=== PATIENT | female | born 1995 | race Caucasian/White ===

== ENCOUNTER 2020-04-11 15:35 | Inpatient (IN) ==
[~2020-04-11 15:35] MED LIST: PENICILLIN G POTASSIUM 6 MU in DEXTROSE 5% 250 ML IV STA
[2020-04-11] MEDS ORDERED: OXYTOCIN 30 UNITS/500 ML BAG IV PRN ×2 (17:30→22:29)
[2020-04-11] MEDS ORDERED: PENICILLIN G POTASSIUM 3 MU in DEXTROSE 5% 100 ML IV PRN (17:30)
[2020-04-11 17:54] LABS: Hematocrit (blood only) 37.1 % (37-47); Hemoglobin 13.2 g/dL (12.0-16.0); Mean Corpuscular Hemoglobin 32.6 pg (25-34); Mean Corpuscular Volume 91.6 fL (80-100); Mean Platelet Volume 10.4 fL (7.4-10.4); Platelet Count 153 K/uL (130-400); RDW Coefficient of Variation 12.7 % (11.5-14.5); RDW Standard Deviation 42.8 fL (36.4-46.3); Red Blood Count 4.05 M/uL (4.2-5.4); White Blood Count 8.41 K/uL (4.8-10.8)
[2020-04-11] MEDS: LACTATED RINGER'S 1,000 ML IV PRN ×2 (18:01→20:08)
[2020-04-11 18:02] LABS: Mean Corpuscular Hgb Conc 35.6 g/dL (32-36)
[2020-04-11] MEDS ORDERED: BUPIVACAINE 0.25% 30 ML VIAL ONE (18:25)
[2020-04-11] MEDS ORDERED: ePHEDrine sulfate 50 MG/ML AMP ONE (18:25)
[2020-04-11] MEDS ORDERED: fentaNYL citrate 100 MCG/2 ML VIAL ONE (18:25)
[2020-04-11] MEDS ORDERED: fentaNYL 2MCG/ML ROPIV 1.25MG/ML 100 ML BAG EPI ONE (18:25)
--- NOTE | 2020-04-11 19:25 | Anesthesiology Consultation ---
Date of Service April 11, 2020 Assessment & Plan Chart Review Chart Review: Acceptable Risk for Labor Epidural Consults Requested none History Height/Weight Height: 5 ft 6.54 in Weight: 63 kg Allergies Allergy/AdvReac Type Severity Reaction Status Date / Time No Known Allergies Allergy Verified 04/11/20 15:14 Medications Home Medications Medication Instructions Recorded Confirmed Last Taken prenat.vits,keshav,[id number] 1 tab PO DAILY 09/24/19 04/11/20 04/11/20 13:30 ferrous sulfate 325 mg (65 mg 325 mg PO DAILY 12/24/19 04/11/20 04/11/20 13:30 iron) tablet Active Medications Generic Name Dose Route Start Last Admin Trade Name Freq PRN Reason Stop Dose Admin Lactated Ringer's 1,000 mls @ 125 mls/hr 04/11/20 17:30 04/11/20 18:45 Lr IV 04/13/20 17:29 125 mls/hr .Q8H PRN Infusion L&D Protocol Protocol Past Medical History Medical History Encounter for anatomic survey Past Family History Family History Grandfather (Paternal) Diabetes Mother Tachycardia Social History Smoking Status: Never smoker Hx Alcohol Use: No Hx Substance Use: No Physical Exam Vital Signs Last Vital Signs Temp 37.0 C 04/11/20 18:09 Pulse 88 04/11/20 19:24 Resp 18 04/11/20 15:51 BP 105/67 04/11/20 19:24 Pulse Ox 96 04/11/20 19:21 Testing Laboratory Results 04/11/20 17:45
[2020-04-11] MEDS ORDERED: ePHEDrine sulfate 50 MG/ML AMP IV PRN (19:32)
[2020-04-11] MEDS ORDERED: fentaNYL 2MCG/ML ROPIV 1.25MG/ML 100 ML BAG EPI PRN (19:32)
[2020-04-11] MEDS ORDERED: NALOXONE HCL 1 MG in SODIUM CHLORIDE 0.9% 1000ML 1,000 ML IV PRN (19:32)
[2020-04-11] MEDS ORDERED: DiphenhydrAMINE HCL 50 MG/ML VIAL IV PRN (19:32)
[2020-04-11] MEDS ORDERED: NALOXONE HCL 0.4 MG/1 ML VIAL/CARP IV PRN (19:32)
--- NOTE | 2020-04-11 19:59 | History & Physical Report ---
Date of Service April 11, 2020 Assessment & Plan Admission and Anticipated Discharge Date Admission Date: April 11, 2020 IUP at 35 1/7 weeks with SPROM and in active labor GBS & COVID screening done will start PCN G prophylaxis pending the GBD culture patient requesting epidural analgesia peds hospitalist notified and plans to be here for delivery anticipate vaginal History of Present Illness Primary Care Provider: Cristal Patino MD Patient is a 25 yo white female EDC 05/15/20 who presents at 35 1/7 weeks with leaking clear fluid at 1400 today. the fluid was clear and was mixed with bloody mucus. she did have some cramping prior to the leaking fluid. no fever or chills, no dysuria. She was seen in the office where she was noted to be soaking a chux pad with clear fluid that was nitrazine flash blue. She has noticed increased cramping and contractions for the last several hours as well . up to this point has been uncomplicated. GBS & COVID status unknown. Allergies Allergy/AdvReac Type Severity Reaction Status Date / Time No Known Allergies Allergy Verified 04/11/20 15:14 Home Medications Home Medications Medication Instructions Recorded Confirmed Type prenat.vits,keshav,[id number] 1 tab PO DAILY 09/24/19 04/11/20 History ferrous sulfate 325 mg (65 mg 325 mg PO DAILY 12/24/19 04/11/20 History iron) tablet Patient History Medical History Encounter for anatomic survey Family History Grandfather (Paternal) Diabetes Mother Tachycardia Social History Smoking Status: Never smoker Second Hand Exposure: No; Hx Alcohol Use: No Hx Substance Use: No Preferred Language: French Communication Ability: Effective Coloring Room Worker Required: Yes and No Beliefs That Will Affect Care: None marital status: marital status details: Yair Manasa ( 29) [phone] Current Living Situation: Spouse Current Living Situation Comment: Yair current occupational status: unemployed Other Information That Helps Us Care for You: No Feels Safe at Home: Yes Safety Concerns: Feels Safe At This Time Assistive Devices: None Review of Systems All systems reviewed & are unremarkable except as noted in HPI & below Physical Exam Constitutional: WD/WN, vitals as above Respiratory: normal respiratory effort, lungs clear to auscultation Cardiovascular: RRR, no murmur, no edema Gastrointestinal (Abdomen): normal bowel sounds, soft, nontender, no hepatosplenomegaly Psychiatric: A+Ox3, euthymic affect Genitourinary: OB Exam Abdomen: + vertex Manual OB Exam: + cervical dilation 6 cm, + cervical effacement 90%, + station -1 and + amniotic fluid (grossly ruptured) clear, nitrazine positive and ferning present OB Exam Monitor Tracing: + external FHT monitor used, + external uterine monitor used, + category I and + normal FHT variability Results & Data ([facility]) Vital Signs (Past 12 Hours) Vital Signs Temp Pulse Resp BP Pulse Ox 04/11/20 19:49 94 H 94 04/11/20 19:46 77 96 04/11/20 19:44 80 107/67 04/11/20 19:41 81 96 04/11/20 19:36 88 111/65 96 04/11/20 19:31 82 96 04/11/20 19:26 84 96 04/11/20 19:24 88 105/67 04/11/20 19:21 79 108/70 96 04/11/20 19:18 75 104/70 04/11/20 19:16 79 96 04/11/20 19:15 84 103/70 04/11/20 19:12 97 H 112/71 04/11/20 19:11 83 96 04/11/20 19:09 80 107/64 04/11/20 19:06 81 112/64 96 04/11/20 19:01 77 97 04/11/20 18:56 84 96 04/11/20 18:51 76 97 04/11/20 18:09 98.6 F 04/11/20 15:52 73 120/70 04/11/20 15:51 98.8 F 18 Coding Level of Care Code None
[2020-04-11] MEDS ORDERED: ACETAMINOPHEN 325 MG TAB PO PRN (22:29)
[2020-04-11] MEDS ORDERED: DIPHTHERIA/TETANUS/PERTUSSIS 0.5 ML SYR/VIAL IM ONE (22:29)
[2020-04-11] MEDS ORDERED: OXYCODONE/ACETAMINOPHEN 5mg/325mg TAB PO PRN (22:29)
[2020-04-11] MEDS ORDERED: SUPERCREAM 0.870% 15 GM JAR EXT PRN (22:29)
[2020-04-11] MEDS ORDERED: IBUPROFEN 600 MG TAB PO PRN (22:29)
[2020-04-11] MEDS ORDERED: HYDROCORTISONE ACETATE 25 MG SUPP PR PRN (22:29)
[2020-04-11] MEDS ORDERED: BENZOCAINE 20% AER SPR 82.5 GM CAN EXT PRN (22:29)
[2020-04-11] MEDS ORDERED: bisacodyL 10 MG SUPP PR PRN (22:29)
--- NOTE | 2020-04-11 23:02 | Delivery Summary ---
Vaginal Delivery Summary Date of Service The patient is a 25-year-old 1 P0 white female EDC 05/15/2020 who presents at 35-1/7 weeks with spontaneous rupture of membranes. Upon arrival in labor and delivery she was noted to be grossly ruptured for clear fluid. She was also complaining of contractions that were getting more intense and closer together. Her initial exam was 6 cm dilated. GBS culture and COVID admission swab were obtained upon Admission. She requested epidural analgesia which was effective. she received 1 dose of penicillin G prior to delivery. She progressed to full dilation and pushed effectively over intact perineum For delivery of a viable male infant. After delivery of the head there was noted to be a double nuchal cord which was reduced prior to delivering the rest of the infant. The rest of the infant delivered easily and was placed on the mother's abdomen for further attention and drying. Dr. Rasmussen was in attendance as work order detailer and assessed the baby shortly after delivery. The placenta was expressed intact with a three-vessel cord. bleeding was controlled with dilute Pitocin. A second-degree perineal laceration was r.epaired with 3-0 chromic in the usual fashion. Estimated blood loss was 300 cc. The infant was stable enough to continue skin to skin after initial assessment. Mother and baby were doing well after delivery. [facility] Vaginal Delivery Charge Vaginal Delivery Codes: 63686 global code for the antepartum, delivery, and post-
[2020-04-12 06:46] LABS: Hematocrit (blood only) 31.2 % (37-47); Hemoglobin 11.1 g/dL (12.0-16.0); Mean Corpuscular Hemoglobin 32.9 pg (25-34); Mean Corpuscular Hgb Conc 35.6 g/dL (32-36); Mean Corpuscular Volume 92.6 fL (80-100); Mean Platelet Volume 10.3 fL (7.4-10.4); Platelet Count 145 K/uL (130-400); RDW Coefficient of Variation 12.7 % (11.5-14.5); Red Blood Count 3.37 M/uL (4.2-5.4); White Blood Count 9.96 K/uL (4.8-10.8)
--- NOTE | 2020-04-12 07:22 | Anesthesia Procedure Note ---
Date of Service April 12, 2020 Anesthesia Post Epidural Note Vital Signs Vital Signs: Temp Pulse Resp BP Pulse Ox 36.8 C 80 16 102/73 97 04/12/20 03:30 04/12/20 03:30 04/12/20 03:30 04/12/20 03:30 04/12/20 03:30 Pain Intensity Lower Abdomen: Pain Intensity: 3 Episiotomy/Laceration: Pain Intensity: 1 Notes Mental Status: alert / awake / arousable Nausea / Vomiting: adequately controlled Pain: adequately controlled Airway Patency, RR, SpO2: stable & adequate BP & HR: stable & adequate Hydration State: stable & adequate Neuraxial Anesthesia: was administered and sensory block is resolving Anesthetic Complications: no major complications apparent and Pt Satisfied with anesthetic care Epidural: Removed without complications and With tip intact
[2020-04-12] MEDS: DOCUSATE SODIUM 100 MG CAP PO SCH ×2 (08:43→20:26)
[2020-04-12] MEDS: PRENATAL VITAMIN 1 TAB PO SCH (08:43)
[2020-04-12] MEDS ORDERED: bisacodyL 5 MG TABEC PO SCH (20:00)
[2020-04-13 07:05] LABS: Hemoglobin 11.4 g/dL (12.0-16.0)
--- NOTE | 2020-04-13 07:46 | Obstetrical Progress Note ---
Date of Service April 13, 2020 Assessment & Plan (1) Encounter for visit: doing well, stable and ready for d/c, reviewed instructions. plan f/u 6wks. bottle, rh pos, ri. f/u 6wks pp check. Day #:: 2 Subjective Ambulation: ambulating normally Voiding: no voiding problems Diet Tolerance:: regular diet Lochia:: Small Feeding Type:: breast feeding no pain issues. ready to go home Physical Exam Constitutional WD/WN, vitals as above Respiratory normal respiratory effort, lungs clear to auscultation Cardiovascular Rate/Rhythm: regular rate and regular rhythm Gastrointestinal (Abdomen) Percussion/Palpation: abdomen soft; abdomen nontender Musculoskeletal nt calves Neurologic grossly normal Psychiatric A+Ox3, euthymic affect Results & Data ([facility]) Vital Signs (Past 12 Hours) Vital Signs Temp Pulse Resp BP Pulse Ox 04/12/20 23:20 98.2 F 77 16 108/71 96
[2020-04-13] MEDS: DOCUSATE SODIUM 100 MG CAP PO SCH (08:40)
[2020-04-13] MEDS: PRENATAL VITAMIN 1 TAB PO SCH (08:40)
== END 2020-04-13 14:40 | disposition home or self-care (01) | DRG 807 ==
LOC: OPB 15:35 → 4S1 15:36 → 4N 04-12 00:46